=== PATIENT | male | born 1950 | race Caucasian/White ===

== ENCOUNTER 2017-09-01 18:02 | Emergency (ER) | payer BC ==
[~2017-09-01] VITALS: Ht 172.7 cm; Wt 82.1 kg
[~2017-09-01 18:02] MED LIST: CARB200T39 PO; DIAZ5SOL2 PO; ENAL10TA PO; FELO5TAB4 PO; FINA1TAB PO; FLAX100025 PO; OMEG1CAP PO; VITA400T4 PO; [UNRECOGNIZED DRUG - CODE] PO
--- NOTE | 2017-09-01 18:07 | NUR ---
[id number]: S/P WITNESSED SEIZURE. POSTICTAL. BS IN FIELD 96. PLACED ON MONITOR. AWAITING MD ORDER
[2017-09-01] MEDS ORDERED: CARBAMAZEPINE 200 MG TABLET ONE (18:25)
[2017-09-01] MEDS ORDERED: CARBAMAZEPINE 200 MG TABLET PO ONE (18:30)
--- NOTE | 2017-09-01 19:00 | NUR ---
ASSUME PT CARE. AWAKE. RESTING IN BED. ON SEIZURE PRECAUTION. WILL CONT TO MONITOR.
--- NOTE | 2017-09-01 20:20 | NUR ---
PT IS [id number]. STABLE VITALS. D/C HOME IN STABLE CONDITION.
[2017-09-01 20:25] VITALS: BP 152/87
== END 2017-09-01 20:26 | disposition home or self-care (01) ==
LOC: ER 18:10
DX: G40.909 Epilepsy, unspecified, not intractable, without status epilepticus (principal); R51 Headache; I10 Essential (primary) hypertension; Z88.5 Allergy status to narcotic agent
CPT/HCPCS: 70450-TC; A4606; Z7610